=== PATIENT | male | born 1965 | race Caucasian/White ===

== ENCOUNTER 2020-07-19 07:07 | Outpatient (CLI) | payer OTHER, SELFPAY ==
--- NOTE | 2020-07-19 07:18 | USCV_ITS ---
Macho Martinez Age: 54 Gender: M : 1965 Exam Date: 07/19/2020 07:16 Ordering Phys: Dickson Patino MD Technologist: Krysta Ruvalcaba Exam Location: [facility] – [place] Indication: HOCO BP: / HR: 69 Rhythm: Other Technical Quality: Limited MEASUREMENTS (Male / Female) Normal Values 2D ECHO LV Diastolic Diameter PLAX 4.0 cm 4.2 - 5.9 / 3.9 - 5.3 cm LV Systolic Diameter PLAX 3.5 cm LV Chamber Size 3.5 cm IVS Diastolic Thickness 2.0 cm 0.6 - 1.0 / 0.6 - 0.9 cm IVS Systolic Thickness 2.1 cm LVPW Diastolic Thickness 1.5 cm 0.6 - 1.0 / 0.6 - 0.9 cm LVPW Systolic Thickness 2.3 cm RV Chamber Size 4.0 cm LVOT Diameter 2.1 cm LV Ejection Fraction 2D Teich 25.0 % LV Ejection Fraction MOD 2C 37.9 % LV Ejection Fraction 2C AL 34.7 % LA Diameter 5.8 cm LA Width 5.2 cm LA Height 6.1 cm RA Width 3.8 cm RA Height 5.2 cm Aorta at Sinotubular Diameter 3.3 cm M-MODE LV Diastolic Diameter MM 6.4 cm 4.2 - 5.9 / 3.9 - 5.3 cm LV Systolic Diameter MM 3.7 cm LV Ejection Fraction MM Teich 71.6 % IVS Diastolic Thickness MM 1.3 cm 0.6 - 1.0 / 0.6 - 0.9 cm IVS Systolic Thickness MM 2.0 cm LVPW Diastolic Thickness MM 1.1 cm 0.6 - 1.0 / 0.6 - 0.9 cm LVPW Systolic Thickness MM 2.1 cm RV Diastolic Diameter MM 1.3 cm Aortic Annulus Diameter 3.2 cm LA Ao Ratio MM 1.8 MV E Point Septal Separation 0.4 cm DOPPLER AV Peak Velocity 80.0 cm/s LVOT Peak Velocity 74.0 cm/s AV Area Cont Eq vti 3.3 cm squared AV Area Cont Eq pk 3.1 cm squared MV Area PHT 5.6 cm squared Mitral E to A Ratio 1.6 MV E' Velocity 10.0 cm/s Mitral E to MV E' Ratio 6.6 Mitral E to LV E' Lateral Ratio 7.0 Mitral E to LV E' Septal Ratio 6.2 TR Peak Velocity 201.7 cm/s TR Peak Gradient 16.3 mmHg TR Mean Velocity 129.7 cm/s TR Mean Gradient 8.1 mmHg TR Velocity Time Integral 59.4 cm TV Peak E Velocity 60.0 cm/s Right Atrial Pressure 3.0 mmHg Pulmonary Artery Systolic Pressu 19.3 mmHg PV Peak Velocity 75.0 cm/s RV Acceleration Time 0.1 s RV Ejection Time 0.3 s RV AcT/ET 0.4 FINDINGS Left Ventricle Normal left ventricular size. LV systolic function is moderately reduced with a EF of 35 to 40%. There is mild to moderate global hypokinesis with severe hypokinesis of the inferoseptal wall. Due to limited quality of echo, inferiolateral wall is not well visualized and its thickness cannot be assessed accurately. However there is evidence of hypertrophic cardiomyopathy with 2 cm diastolic thickness of basal septal wall. No systolic anterior motion of mitral valve is noted. No significant gradient could be elicited across the LVOT with and without Valsalva. Diastolic function is indeterminate. Right Ventricle The right ventricle is normal in size and function. There is a pacemaker lead noted in the right ventricle. Right Atrium The right atrium is normal in size. There is a pacemaker lead noted in right atrium. Left Atrium The left atrium is enlarged. Mitral Valve Structurally normal mitral valve without significant stenosis or prolapse. There is no mitral regurgitation. Aortic Valve Structurally normal aortic valve without significant sclerosis or stenosis. There is no aortic regurgitation. Tricuspid Valve Structurally normal tricuspid valve without significant stenosis. Trace TR is present. RVSP is 20 mmHg. RA pressure is normal Pulmonic Valve Structurally normal pulmonic valve without significant stenosis. There is no pulmonic regurgitation. Pericardium Normal pericardium without effusion. Aorta Normal ascending aorta dimension. CONCLUSIONS LV systolic function is moderately reduced. There is evidence of hypertrophic cardiomyopathy with 2 cm diastolic thickness of basal septal wall. No systolic anterior motion of mitral valve is noted. No significant gradient could be elicited across LVOT with and without Valsalva. Normal RVSP Casey Vergara MD (Electronically Signed) Final Date: 19 July 2020 10:46 S
== END 2020-07-19 07:08 | disposition home or self-care (01) ==
PROVIDERS: PCP Family Medicine; Visit Provider Internal Medicine Cardiovascular Disease
DX: I42.1 Obstructive hypertrophic cardiomyopathy (principal)
CPT/HCPCS: 93306

== ENCOUNTER → 2020-09-01 08:54 | Outpatient (BNVA) | payer OTHER, SELFPAY | PROVIDERS: PCP Family Medicine; Visit Provider Internal Medicine Cardiovascular Disease | DX: Z11.59 Encounter for screening for other viral diseases (principal) | CPT/HCPCS: 87635 ==

== ENCOUNTER 2020-09-05 09:53 | Outpatient (CLI) | payer OTHER, SELFPAY ==
--- NOTE | 2020-09-05 13:01 | PFTS_ITS ---
Date of Study:09/05/20 Date of Dictation: 09/07/2020 MECHANICS: Forced vital capacity (FVC) is Normal Forced expiratory volume in one second (FEV1) is normal FEV1/FVC is normal No bronchodilator given FLOW VOLUME LOOP: Normal . LUNG VOLUMES: Total lung capacity (TLC) is normal. Residual volume (RV) is normal DIFFUSING CAPACITY FOR CARBON MONOXIDE: Normal . INTERPRETATION: The pulmonary function tests are normal MTDD
== END 2020-09-05 09:54 | disposition home or self-care (01) ==
PROVIDERS: PCP Family Medicine; Visit Provider Internal Medicine Cardiovascular Disease
DX: I48.0 Paroxysmal atrial fibrillation (principal); Z79.899 Other long term (current) drug therapy
CPT/HCPCS: 94010; 94726; 94729

== ENCOUNTER 2020-12-19 08:20 | Outpatient (CLI) | payer OTHER, SELFPAY ==
[2020-12-19 09:14] LABS: Alanine Aminotransferase 20 U/L (0-41); Albumin Level 4.2 g/dL (3.5-5.2); Alkaline Phosphatase 34 IU/L (40-130); Anion Gap 13.2 (5-19); Aspartate Amino Transferase 23 U/L (0-40); Blood Urea Nitrogen 32 mg/dL (6-20); Calcium 9.3 mg/dL (8.5-10.5); Carbon Dioxide 25 mmol/L (22-29); Chloride 104 mmol/L (98-107); Globulin 3.4 g/dL (1.3-4.6); Glomerular Filtration Rate 52.2 mL/min (90-130); Glucose 88 mg/dL (65-115); Osmolality Calculated 292 mOsm/kg (285-295); Potassium 4.2 mmol/L (3.5-5.1); Sodium 138 mmol/L (136-145); Thyroid Stimulating Hormone 6.28 uIU/mL (0.27-4.20); Total Bilirubin 0.5 mg/dL (0.15-1.2); Total Protein 7.6 g/dL (6.6-8.7)
== END 2020-12-19 08:21 | disposition home or self-care (01) ==
PROVIDERS: Visit Provider Internal Medicine Cardiovascular Disease
DX: I48.0 Paroxysmal atrial fibrillation (principal)
CPT/HCPCS: 36415; 80053; 84443

== ENCOUNTER 2021-01-16 09:00 | Outpatient (CLI) | payer OTHER, SELFPAY ==
[2021-01-16 10:22] LABS: Thyroid Stimulating Hormone 6.66 uIU/mL (0.27-4.20)
== END 2021-01-16 09:01 | disposition home or self-care (01) ==
PROVIDERS: Visit Provider Internal Medicine Cardiovascular Disease
DX: I42.1 Obstructive hypertrophic cardiomyopathy (principal); R89.9 Unspecified abnormal finding in specimens from other organs, systems and tissues
CPT/HCPCS: 84443

== ENCOUNTER 2021-12-27 07:45 | Outpatient (CLI) | payer OTHER, SELFPAY ==
[2021-12-27 08:39] LABS: Thyroid Stimulating Hormone 6.04 uIU/mL (0.27-4.20)
== END 2021-12-27 07:46 | disposition home or self-care (01) ==
PROVIDERS: Visit Provider Internal Medicine Cardiovascular Disease
DX: I42.1 Obstructive hypertrophic cardiomyopathy (principal)
CPT/HCPCS: 84443

== ENCOUNTER 2022-12-12 11:52 | Outpatient (CLI) | payer OTHER, SELFPAY ==
[2022-12-12 12:34] LABS: Alanine Aminotransferase 21 U/L (0-41); Albumin Level 4.3 g/dL (3.5-5.2); Alkaline Phosphatase 40 U/L (40-130); Anion Gap 15.2 (5-19); Aspartate Amino Transferase 26 U/L (0-40); Blood Urea Nitrogen 20 mg/dL (6-20); Carbon Dioxide 25 mmol/L (22-29); Chloride 104 mmol/L (98-107); Globulin 3.4 g/dL (1.3-4.6); Glomerular Filtration Rate 51.9 mL/min (90-130); Glucose 116 mg/dL (65-115); Osmolality Calculated 292 mOsm/kg (285-295); Potassium 5.2 mmol/L (3.5-5.1); Sodium 139 mmol/L (136-145); Total Bilirubin 0.4 mg/dL (0.15-1.2); Total Protein 7.7 g/dL (6.6-8.7)
== END 2022-12-12 11:53 | disposition home or self-care (01) ==
LOC: LAB 11:55
PROVIDERS: PCP Registered Nurse; Visit Provider Internal Medicine Cardiovascular Disease
DX: Z01.89 Encounter for other specified special examinations (principal)
CPT/HCPCS: 36415; 80053

== ENCOUNTER 2022-12-19 09:33 | Outpatient (CLI) | payer OTHER, SELFPAY ==
[2022-12-19 10:49] LABS: Thyroid Stimulating Hormone 2.72 uIU/mL (0.27-4.20)
== END 2022-12-19 09:34 | disposition home or self-care (01) ==
LOC: LAB 09:40
PROVIDERS: PCP Registered Nurse; Visit Provider Internal Medicine Cardiovascular Disease
DX: Z79.899 Other long term (current) drug therapy (principal)
CPT/HCPCS: 36415; 84443

== ENCOUNTER 2023-04-28 09:55 | Outpatient (CLI) | payer OTHER, SELFPAY ==
[2023-04-28 11:14] LABS: Anion Gap 14.1 (5-19); Blood Urea Nitrogen 22 mg/dL (6-20); Calcium 8.7 mg/dL (8.5-10.5); Carbon Dioxide 23 mmol/L (22-29); Chloride 106 mmol/L (98-107); Glomerular Filtration Rate 47.9 mL/min (90-130); Glucose 100 mg/dL (65-115); Osmolality Calculated 291 mOsm/kg (285-295); Potassium 4.1 mmol/L (3.5-5.1); Sodium 139 mmol/L (136-145)
== END 2023-04-28 09:56 | disposition home or self-care (01) ==
PROVIDERS: PCP Registered Nurse; Visit Provider Internal Medicine Cardiovascular Disease
DX: Z79.899 Other long term (current) drug therapy (principal)
CPT/HCPCS: 36415; 80048

== ENCOUNTER → 2024-05-18 08:18 | Outpatient (BNVA) | payer OTHER, SELFPAY | PROVIDERS: PCP Registered Nurse; Visit Provider Internal Medicine | DX: I48.91 Unspecified atrial fibrillation (principal) | CPT/HCPCS: 93005 ==

== ENCOUNTER 2024-05-18 08:45 | Outpatient (CLI) | payer OTHER, SELFPAY ==
[2024-05-18 09:52] LABS: Alanine Aminotransferase 19 U/L (0-41); Aspartate Amino Transferase 24 U/L (0-40)
== END 2024-05-18 08:46 | disposition home or self-care (01) ==
PROVIDERS: PCP Registered Nurse; Visit Provider Internal Medicine Cardiovascular Disease
DX: I48.0 Paroxysmal atrial fibrillation (principal); I47.20 Ventricular tachycardia, unspecified; Z79.899 Other long term (current) drug therapy
CPT/HCPCS: 36415; 84450; 84460